=== PATIENT | male | born 1940 | race Caucasian/White ===

== ENCOUNTER 2020-06-22 17:23 | Observation (INO) ==
[2020-06-22 18:30] LABS: INR 1.6; Prothrombin Time 18.1 Seconds (9.4-12.1)
[2020-06-22 18:32] LABS: Activated Partial Thrombo Time 42.1 Seconds (26.0-36.0)
[2020-06-22 18:33] LABS: Basophils # 0.1 K/mcL (0.0-0.2); Basophils % 0.7 %; Eosinophils # 0.6 K/mcL (0.0-0.6); Eosinophils % 4.4 %; Hematocrit 28.4 % (37.5-50.1); Hemoglobin 8.9 g/dL (12.9-16.9); Lymphocytes # 2.1 K/mcL (0.6-4.6); Mean Corpuscular HGB Conc 31.3 g/dL (31.6-35.5); Mean Corpuscular Hemoglobin 28.9 pg (28.0-33.3); Mean Corpuscular Volume 92.2 fL (83.0-100.0); Mean Platelet Volume 9.9 fL (9.4-12.4); Monocytes # 1.2 K/mcL (0.0-1.3); Monocytes % 9.5 %; Neutrophils # 8.3 K/mcL (1.6-8.9); Platelet Count 508 K/mcL (140-400); Red Blood Count 3.08 M/mcL (4.19-5.50); Red Cell Distribution Width 15.8 % (11.5-14.5); Segmented Neutrophils % 67.4 %; White Blood Count 12.4 K/mcL (4.3-11.1)
[2020-06-22 18:47] LABS: Potassium 3.9 mEq/L (3.5-5.1)
[2020-06-22 19:02] LABS: Troponin I 0.05 ng/mL (< 0.04)
[2020-06-22] MEDS ORDERED: Naloxone 0.4 MG/ML INJ IVP PRN (21:50)
[2020-06-23 02:48] LABS: Basophils # 0.1 K/mcL (0.0-0.2); Basophils % 1.1 %; Eosinophils # 0.7 K/mcL (0.0-0.6); Eosinophils % 6.2 %; Hematocrit 26.3 % (37.5-50.1); Hemoglobin 8.4 g/dL (12.9-16.9); Immature Granulocytes % 1.1 % (0-4); Lymphocytes # 2.1 K/mcL (0.6-4.6); Lymphocytes % 18.7 %; Mean Corpuscular HGB Conc 31.9 g/dL (31.6-35.5); Mean Corpuscular Hemoglobin 29.4 pg (28.0-33.3); Mean Platelet Volume 9.7 fL (9.4-12.4); Monocytes % 9.4 %; Platelet Count 486 K/mcL (140-400); Red Blood Count 2.86 M/mcL (4.19-5.50); Red Cell Distribution Width 15.7 % (11.5-14.5); Segmented Neutrophils % 63.5 %; White Blood Count 11.1 K/mcL (4.3-11.1)
[2020-06-23 02:53] LABS: INR 1.5; Prothrombin Time 17.3 Seconds (9.4-12.1)
[2020-06-23 03:10] LABS: Albumin 2.7 g/dL (3.5-5.7); Albumin/Globulin Ratio 0.7 (1.1-2.2); Bilirubin,Total 0.4 mg/dL (0.3-1.0); Calcium 8.8 mg/dL (8.6-10.3); Magnesium 2.1 mg/dL (1.6-2.6); Phosphorous 3.7 mg/dL (2.7-4.5); Total Protein 6.7 g/dL (6.4-8.9)
[2020-06-23] MEDS ORDERED: *HR* OxyCODONE Immed Rel 5 MG TABLET PO PRN (07:54)
[2020-06-23] MEDS ORDERED: Fish Oil 1,000 Mg Softgel PO SCH (09:00)
[2020-06-23] MEDS ORDERED: Pyridoxine (B-6) 50 MG TABLET PO SCH (09:00)
[2020-06-23] MEDS ORDERED: Pregabalin 75 MG CAPSULE PO SCH (09:00)
[2020-06-23] MEDS ORDERED: Loratadine 10 MG TABLET PO SCH (09:00)
[2020-06-23] MEDS ORDERED: Aspirin Enteric Coated 81 MG Tablet PO SCH (09:00)
[2020-06-23] MEDS ORDERED: Multivit/Ca/Min/Fe/FA 1 TAB TABLET PO SCH (09:00)
[2020-06-23] MEDS ORDERED: Furosemide 40 MG TABLET PO SCH (09:00)
[2020-06-23] MEDS ORDERED: Vitamin E 200 UNIT (90MG) CAPSULE PO SCH (09:00)
[2020-06-23] MEDS ORDERED: Lidocaine 1% 20 ML MDV ONE (13:43)
[2020-06-23] MEDS ORDERED: Lidocaine -MPF 2% 2 ML VIAL ONE (14:22)
[2020-06-23] MEDS ORDERED: *HR* FentaNYL (PF) 100 MCG/2 ML VIAL ONE ×2 (14:22→14:35)
[2020-06-23] MEDS ORDERED: Ondansetron 4 MG/2 ML VIAL ONE (14:23)
[2020-06-23] MEDS ORDERED: Vancomycin 1,000 MG VIAL ONE (14:23)
[2020-06-23] MEDS ORDERED: Heparin 1,000 UNITS/500 mL 500 ML ONE (14:23)
[2020-06-23] MEDS ORDERED: *HR* FentaNYL (PF) 100 MCG/2 ML VIAL IVP PRN (14:25)
[2020-06-23] MEDS ORDERED: Lidocaine HCL 4 ML Topical Solution (Laryng-O-Jet Kit Sterile Pak) TP ONE (14:35)
[2020-06-23] MEDS ORDERED: *HR* PHENYLEPHRINE 1,000 MCG/10 ML SYRINGE IVP ONE (15:01)
[2020-06-23] MEDS ORDERED: Isovue-300 200 mL Infus..BTL ONE (15:11)
[2020-06-23] MEDS ORDERED: Dexamethasone 4 MG/ML VIAL ONE (15:32)
[2020-06-23] MEDS ORDERED: Naloxone 0.4 MG/ML INJ IVP PRN (16:19)
[2020-06-23 17:23] VITALS: BP 119/61
== END 2020-06-23 20:34 | disposition home or self-care (01) ==
LOC: EMEROOARM 17:23 → 2ANU 17:23 → SUATTDRO 19:39 → 2ANU 20:30
PROVIDERS: ADMIT Internal Medicine; ATTEND Internal Medicine

== ENCOUNTER 2020-06-25 10:42 | Inpatient (IN) ==
[2020-06-25 11:21] LABS: Basophils # 0.1 K/mcL (0.0-0.2); Basophils % 0.4 %; Eosinophils # 0.4 K/mcL (0.0-0.6); Eosinophils % 2.3 %; Hematocrit 29.4 % (37.5-50.1); Immature Granulocytes % 3.2 % (0-4); Lymphocytes # 1.7 K/mcL (0.6-4.6); Mean Corpuscular HGB Conc 30.6 g/dL (31.6-35.5); Mean Corpuscular Volume 91.3 fL (83.0-100.0); Mean Platelet Volume 9.8 fL (9.4-12.4); Monocytes # 0.9 K/mcL (0.0-1.3); Monocytes % 4.9 %; Platelet Count 575 K/mcL (140-400); Red Blood Count 3.22 M/mcL (4.19-5.50); Red Cell Distribution Width 16.4 % (11.5-14.5); Segmented Neutrophils % 80.2 %
[2020-06-25 11:24] LABS: Neutrophils # 15.2 K/mcL (1.6-8.9)
[2020-06-25 11:33] LABS: INR 1.3; Prothrombin Time 14.5 Seconds (9.4-12.1)
[2020-06-25 11:43] LABS: VBG Ionized Calcium 1.01 mmol/L (1.15-1.35)
[2020-06-25] MEDS ORDERED: Piperacillin/Tazobactam 3.375 GM in Water for inj. (sterile) 20 ML IVP ONE (11:51)
[2020-06-25 11:57] LABS: Albumin 3.2 g/dL (3.5-5.7); Albumin/Globulin Ratio 0.8 (1.1-2.2); Bilirubin,Total 0.4 mg/dL (0.3-1.0); Calcium 8.6 mg/dL (8.6-10.3); Globulin 4.2 g/dL (2.4-3.5); Magnesium 2.5 mg/dL (1.6-2.6); Phosphorous 3.5 mg/dL (2.7-4.5); Potassium 4.5 mEq/L (3.5-5.1); Thyroid Stimulating Hormone 2.704 mcIU/mL (0.340-5.600); Total Protein 7.4 g/dL (6.4-8.9); Troponin I 0.04 ng/mL (< 0.04)
[2020-06-25] MEDS ORDERED: Vancomycin 1,250 MG/262.5 ML IV.SOLN IVPB ONE (12:04)
[2020-06-25] MEDS ORDERED: Heparin 1,000 UNITS/500 mL 500 ML ONE (13:30)
[2020-06-25] MEDS ORDERED: *HR* Heparin 5,000 UNIT/ML VIAL ONE (13:58)
[2020-06-25] MEDS ORDERED: Naloxone 0.4 MG/ML INJ IVP PRN (14:19)
[2020-06-25] MEDS ORDERED: Dextrose Gel 15 GM/37.5 ML TUBE PO PRN ×2 (14:21)
[2020-06-25] MEDS ORDERED: *HR* Dextrose 50 % in Water (Vial) 50 ML VIAL IVP PRN (14:21)
[2020-06-25] MEDS ORDERED: D5% in Water 1,000 ML IVC PRN (14:21)
[2020-06-25] MEDS ORDERED: *HR* Heparin 5,000 UNIT/ML VIAL IVP PRN ×2 (14:34)
[2020-06-25] MEDS ORDERED: *HR* Heparin 5,000 UNIT/ML VIAL IVP ONE (14:34)
[2020-06-25] MEDS ORDERED: Heparin 25,000 UNIT/250 ML D5W 25,000 UNIT/250 ML IV.SOLN IVC SCH ×2 (14:45)
[2020-06-25] MEDS ORDERED: *HR* Heparin 10,000 UNIT/10 ML VIAL IV PRN (16:42)
[2020-06-25] MEDS ORDERED: 0.9 % Sodium Chloride 250 ML IVC PRN (16:42)
[2020-06-25] MEDS ORDERED: 0.9 % Sodium Chloride 1,000 ML PRIME SCH (16:45)
[2020-06-25 16:47] LABS: Hepatitis B Surface Antibody 143.38 mIU/mL
[2020-06-25 16:57] LABS: Hepatitis B Surface Antigen Nonreactive (Nonreactive)
[2020-06-25] MEDS ORDERED: Acetaminophen IV 1,000 MG/100 ML INFUS..BTL IVPB ONE (22:27)
[2020-06-25] MEDS: Piperacillin/Tazobactam 3.375 GM in 0.9 % Sodium Chloride Mini Bag 100 ML IVPB SCH (23:44)
[2020-06-26 04:00] LABS: Basophils # 0.1 K/mcL (0.0-0.2); Basophils % 0.7 %; Eosinophils # 0.2 K/mcL (0.0-0.6); Eosinophils % 1.5 %; Hematocrit 25.6 % (37.5-50.1); Hemoglobin 7.8 g/dL (12.9-16.9); Immature Granulocytes % 4.2 % (0-4); Lymphocytes # 1.9 K/mcL (0.6-4.6); Lymphocytes % 14.3 %; Mean Corpuscular HGB Conc 30.5 g/dL (31.6-35.5); Mean Corpuscular Hemoglobin 27.9 pg (28.0-33.3); Mean Corpuscular Volume 91.4 fL (83.0-100.0); Mean Platelet Volume 9.8 fL (9.4-12.4); Monocytes # 1.3 K/mcL (0.0-1.3); Monocytes % 9.3 %; Neutrophils # 9.5 K/mcL (1.6-8.9); Platelet Count 471 K/mcL (140-400); Red Cell Distribution Width 16.5 % (11.5-14.5); White Blood Count 13.5 K/mcL (4.3-11.1)
[2020-06-26 04:13] LABS: Calcium 8.1 mg/dL (8.6-10.3); Potassium 3.9 mEq/L (3.5-5.1)
[2020-06-26] MEDS ORDERED: Vancomycin 1,250 MG/262.5 ML IV.SOLN IVPB ONE (08:26)
[2020-06-26] MEDS ORDERED: Heparin 1,000 UNITS/500 mL 500 ML ONE (09:03)
[2020-06-26] MEDS ORDERED: 0.9 % Sodium Chloride 500 ML ONE (09:03)
[2020-06-26] MEDS: Famotidine 20 MG TABLET PO SCH (09:12)
[2020-06-26] MEDS: Vitamin E 200 UNIT (90MG) CAPSULE PO SCH (09:12)
[2020-06-26] MEDS: Furosemide 40 MG TABLET PO SCH (09:12)
[2020-06-26] MEDS: Metoprolol XL (24 HR) Succ 25 MG TAB.ER.24H PO SCH (09:12)
[2020-06-26] MEDS ORDERED: *HR* Heparin 5,000 UNIT/ML VIAL ONE (12:33)
[2020-06-26] MEDS: Piperacillin/Tazobactam 3.375 GM in 0.9 % Sodium Chloride Mini Bag 100 ML IVPB SCH ×2 (12:56→23:03)
[2020-06-26 16:34] LABS: VBG HCO3 26 mEq/L (21-27); VBG PCO2 36 mmHg (41-51); VBG PH 7.46 pH Units (7.32-7.42); VBG PO2 97 mmHg (25-50)
[2020-06-26] MEDS ORDERED: SODIUM CHLORIDE 0.9% IVPB ONE (17:33)
[2020-06-26] MEDS ORDERED: DESMOPRESSIN ACETATE IVPB ONE (17:33)
[2020-06-26] MEDS: Pyridoxine (B-6) 50 MG TABLET PO SCH (18:11)
[2020-06-26 18:17] LABS: Basophils # 0.1 K/mcL (0.0-0.2); Basophils % 0.6 %; Eosinophils # 0.1 K/mcL (0.0-0.6); Hematocrit 24.3 % (37.5-50.1); Hemoglobin 7.6 g/dL (12.9-16.9); Lymphocytes # 1.8 K/mcL (0.6-4.6); Lymphocytes % 16.8 %; Mean Corpuscular HGB Conc 31.3 g/dL (31.6-35.5); Mean Corpuscular Hemoglobin 28.6 pg (28.0-33.3); Mean Corpuscular Volume 91.4 fL (83.0-100.0); Mean Platelet Volume 9.8 fL (9.4-12.4); Monocytes # 1.3 K/mcL (0.0-1.3); Monocytes % 11.7 %; Neutrophils # 7.1 K/mcL (1.6-8.9); Platelet Count 429 K/mcL (140-400); Red Blood Count 2.66 M/mcL (4.19-5.50); Red Cell Distribution Width 16.9 % (11.5-14.5); Segmented Neutrophils % 65.9 %; White Blood Count 10.7 K/mcL (4.3-11.1)
[2020-06-26 18:21] LABS: INR 1.5; Prothrombin Time 17.1 Seconds (9.4-12.1)
[2020-06-26 18:24] LABS: Activated Partial Thrombo Time 36.1 Seconds (26.0-36.0)
[2020-06-26 20:00] LABS: Hemoglobin 7.6 g/dL (12.9-16.9)
[2020-06-26 23:55] LABS: Hematocrit 26.5 % (37.5-50.1); Hemoglobin 8.4 g/dL (12.9-16.9)
[2020-06-27] MEDS: Acetaminophen 325 MG TABLET PO PRN (01:01)
[2020-06-27 04:38] LABS: Basophils # 0.1 K/mcL (0.0-0.2); Basophils % 0.7 %; Eosinophils # 0.2 K/mcL (0.0-0.6); Hematocrit 26.4 % (37.5-50.1); Hemoglobin 8.3 g/dL (12.9-16.9); Immature Granulocytes % 3.9 % (0-4); Lymphocytes # 1.6 K/mcL (0.6-4.6); Lymphocytes % 16.4 %; Mean Corpuscular HGB Conc 31.4 g/dL (31.6-35.5); Mean Corpuscular Hemoglobin 28.5 pg (28.0-33.3); Mean Corpuscular Volume 90.7 fL (83.0-100.0); Monocytes # 1.3 K/mcL (0.0-1.3); Neutrophils # 6.2 K/mcL (1.6-8.9); Platelet Count 377 K/mcL (140-400); Red Blood Count 2.91 M/mcL (4.19-5.50); Red Cell Distribution Width 15.5 % (11.5-14.5); White Blood Count 9.6 K/mcL (4.3-11.1)
[2020-06-27 04:54] LABS: Potassium 3.9 mEq/L (3.5-5.1)
[2020-06-27] MEDS ORDERED: *HR* Heparin 10,000 UNIT/10 ML VIAL IV PRN (07:31)
[2020-06-27] MEDS ORDERED: 0.9 % Sodium Chloride 250 ML IVC PRN (07:31)
[2020-06-27] MEDS ORDERED: 0.9 % Sodium Chloride 1,000 ML PRIME SCH (07:45)
[2020-06-27] MEDS: Metoprolol XL (24 HR) Succ 25 MG TAB.ER.24H PO SCH (08:44)
[2020-06-27] MEDS: Famotidine 20 MG TABLET PO SCH (08:46)
[2020-06-27] MEDS: Vitamin E 200 UNIT (90MG) CAPSULE PO SCH (08:46)
[2020-06-27] MEDS ORDERED: Isovue-370 500 ML BOTTLE IVP ONE (12:01)
[2020-06-27] MEDS: Furosemide 40 MG TABLET PO SCH (13:32)
[2020-06-27] MEDS: Piperacillin/Tazobactam 3.375 GM in 0.9 % Sodium Chloride Mini Bag 100 ML IVPB SCH (13:32)
[2020-06-27 13:49] LABS: Adenovirus Not Detected (Not Detect); Bordetella Pertussis Not Detected (Not Detect); Chlamydophila pneumoniae Not Detected (Not Detect); Coronavirus 229E Not Detected (Not Detect); Coronavirus HKU1 Not Detected (Not Detect); Coronavirus NL63 Not Detected (Not Detect); Coronavirus OC43 Not Detected (Not Detect); Human Metapneumovirus Not Detected (Not Detect); Human Rhinovirus/Enterovirus Not Detected (Not Detect); Influenza A Subtype 2009 H1 Not Detected (Not Detect); Influenza B Not Detected (Not Detect); Mycoplasma pneumoniae Not Detected (Not Detect); Parainfluenza Virus 1 Not Detected (Not Detect); Parainfluenza Virus 2 Not Detected (Not Detect); Parainfluenza Virus 3 Not Detected (Not Detect); Parainfluenza Virus 4 Not Detected (Not Detect); Respiratory Syncytial Virus Not Detected (Not Detect)
[2020-06-27] MEDS: Pyridoxine (B-6) 50 MG TABLET PO SCH (17:03)
[2020-06-28] MEDS: Piperacillin/Tazobactam 3.375 GM in 0.9 % Sodium Chloride Mini Bag 100 ML IVPB SCH ×3 (01:36→23:28)
[2020-06-28 02:51] LABS: Basophils # 0.1 K/mcL (0.0-0.2); Basophils % 0.5 %; Eosinophils # 0.3 K/mcL (0.0-0.6); Eosinophils % 2.3 %; Hematocrit 28.5 % (37.5-50.1); Hemoglobin 9.2 g/dL (12.9-16.9); Immature Granulocytes % 2.8 % (0-4); Lymphocytes # 1.9 K/mcL (0.6-4.6); Lymphocytes % 16.7 %; Mean Corpuscular HGB Conc 32.3 g/dL (31.6-35.5); Mean Corpuscular Hemoglobin 29.1 pg (28.0-33.3); Mean Corpuscular Volume 90.2 fL (83.0-100.0); Mean Platelet Volume 9.9 fL (9.4-12.4); Monocytes # 1.5 K/mcL (0.0-1.3); Monocytes % 12.5 %; Neutrophils # 7.6 K/mcL (1.6-8.9); Platelet Count 378 K/mcL (140-400); Red Blood Count 3.16 M/mcL (4.19-5.50); Red Cell Distribution Width 15.8 % (11.5-14.5); Segmented Neutrophils % 65.2 %; White Blood Count 11.6 K/mcL (4.3-11.1)
[2020-06-28 03:06] LABS: BUN/Creatinine Ratio 7 (6-26); Blood Urea Nitrogen 31 mg/dL (8-23); Calcium 8.5 mg/dL (8.6-10.3); Carbon Dioxide 24 mEq/L (23-29); Chloride 96 mEq/L (98-107); Glucose 86 mg/dL (70-105); Osmolality,Calculated 284 (280-300); Potassium 3.5 mEq/L (3.5-5.1); Sodium 134 mEq/L (136-145); eGFR For African Americans 16 (> 60); eGFR For Non-African Americans 14 (> 60)
[2020-06-28 03:07] LABS: Amylase 21 Units/L (29-103); Lipase 31 Units/L (11-82)
[2020-06-28] MEDS: Famotidine 20 MG TABLET PO SCH (07:51)
[2020-06-28] MEDS: Vitamin E 200 UNIT (90MG) CAPSULE PO SCH (07:51)
[2020-06-28] MEDS: Metoprolol XL (24 HR) Succ 25 MG TAB.ER.24H PO SCH (09:58)
[2020-06-28] MEDS: *HR* OxyCODONE Immed Rel 5 MG TABLET PO PRN (09:58)
[2020-06-28] MEDS: Furosemide 40 MG TABLET PO SCH (09:58)
[2020-06-28 11:51] LABS: C-Reactive Protein > 300 mg/L (Less than 10)
[2020-06-28 13:53] LABS: INR 1.3; Prothrombin Time 14.9 Seconds (9.4-12.1)
[2020-06-28] MEDS: Artificial Tears SOLN 15 ML BOTTLE BOTH EYES SCH ×2 (17:37→19:28)
[2020-06-28] MEDS: Pyridoxine (B-6) 50 MG TABLET PO SCH (17:38)
[2020-06-28] MEDS: Ondansetron 4 MG/2 ML VIAL IVP PRN (19:28)
[2020-06-29] MEDS: *HR* OxyCODONE Immed Rel 5 MG TABLET PO PRN ×3 (01:47→18:29)
[2020-06-29 06:00] LABS: Hematocrit 25.9 % (37.5-50.1); Hemoglobin 8.2 g/dL (12.9-16.9); Mean Corpuscular HGB Conc 31.7 g/dL (31.6-35.5); Mean Corpuscular Hemoglobin 29.3 pg (28.0-33.3); Mean Corpuscular Volume 92.5 fL (83.0-100.0); Mean Platelet Volume 9.9 fL (9.4-12.4); Platelet Count 351 K/mcL (140-400); Red Cell Distribution Width 15.9 % (11.5-14.5); White Blood Count 11.5 K/mcL (4.3-11.1)
[2020-06-29 06:19] LABS: Calcium 7.9 mg/dL (8.6-10.3); Potassium 3.9 mEq/L (3.5-5.1)
[2020-06-29] MEDS ORDERED: *HR* Heparin 10,000 UNIT/10 ML VIAL IV PRN (07:42)
[2020-06-29] MEDS ORDERED: 0.9 % Sodium Chloride 250 ML IVC PRN (07:42)
[2020-06-29] MEDS ORDERED: 0.9 % Sodium Chloride 1,000 ML PRIME SCH (07:45)
[2020-06-29] MEDS: Artificial Tears SOLN 15 ML BOTTLE BOTH EYES SCH ×4 (10:59→21:05)
[2020-06-29 11:59] LABS: Color,Synovial Fluid Red (Straw)
[2020-06-29 12:00] LABS: Appearance,Synovial Fluid Cloudy (Clear-Hazy)
[2020-06-29 12:12] LABS: Glucose,Synovial Fluid < 10 mg/dL (No Ref Range); LDH,Synovial Fluid > 1200 Units/L (No Ref Range)
[2020-06-29] MEDS: Metoprolol XL (24 HR) Succ 25 MG TAB.ER.24H PO SCH (12:29)
[2020-06-29] MEDS: Vitamin E 200 UNIT (90MG) CAPSULE PO SCH (12:29)
[2020-06-29] MEDS: Famotidine 20 MG TABLET PO SCH (12:29)
[2020-06-29] MEDS: Piperacillin/Tazobactam 3.375 GM in 0.9 % Sodium Chloride Mini Bag 100 ML IVPB SCH (12:30)
[2020-06-29] MEDS: Acetaminophen 325 MG TABLET PO PRN (13:48)
[2020-06-29] MEDS: Furosemide 40 MG TABLET PO SCH (13:48)
[2020-06-29] MEDS ORDERED: Vancomycin 500 MG in 0.9 % Sodium Chloride Mini Bag 100 ML IVPB ONE (16:00)
[2020-06-29] MEDS: Pyridoxine (B-6) 50 MG TABLET PO SCH (17:48)
[2020-06-29] MEDS: Ondansetron 4 MG/2 ML VIAL IVP PRN (21:08)
[2020-06-30] MEDS: *HR* OxyCODONE Immed Rel 5 MG TABLET PO PRN ×2 (00:31→21:32)
[2020-06-30] MEDS: Piperacillin/Tazobactam 3.375 GM in 0.9 % Sodium Chloride Mini Bag 100 ML IVPB SCH ×3 (00:32→23:41)
[2020-06-30] MEDS: Acetaminophen 325 MG TABLET PO PRN ×2 (01:41→21:31)
[2020-06-30 05:53] LABS: Basophils # 0.2 K/mcL (0.0-0.2); Basophils % 1.1 %; Eosinophils % 6.1 %; Hematocrit 30.3 % (37.5-50.1); Hemoglobin 9.5 g/dL (12.9-16.9); Immature Granulocytes % 4.6 % (0-4); Lymphocytes # 2.4 K/mcL (0.6-4.6); Lymphocytes % 14.6 %; Mean Corpuscular HGB Conc 31.4 g/dL (31.6-35.5); Mean Corpuscular Hemoglobin 29.2 pg (28.0-33.3); Mean Corpuscular Volume 93.2 fL (83.0-100.0); Mean Platelet Volume 9.9 fL (9.4-12.4); Monocytes # 1.5 K/mcL (0.0-1.3); Neutrophils # 10.7 K/mcL (1.6-8.9); Platelet Count 419 K/mcL (140-400); Red Blood Count 3.25 M/mcL (4.19-5.50); Red Cell Distribution Width 15.9 % (11.5-14.5); Segmented Neutrophils % 64.6 %; White Blood Count 16.6 K/mcL (4.3-11.1)
[2020-06-30 06:10] LABS: Calcium 8.2 mg/dL (8.6-10.3); Potassium 3.6 mEq/L (3.5-5.1)
[2020-06-30] MEDS: Artificial Tears SOLN 15 ML BOTTLE BOTH EYES SCH ×4 (08:49→20:14)
[2020-06-30] MEDS: Vitamin E 200 UNIT (90MG) CAPSULE PO SCH (08:49)
[2020-06-30] MEDS: Furosemide 40 MG TABLET PO SCH ×2 (08:49→10:06)
[2020-06-30] MEDS: Famotidine 20 MG TABLET PO SCH (08:49)
[2020-06-30] MEDS: Metoprolol XL (24 HR) Succ 25 MG TAB.ER.24H PO SCH ×2 (08:49→10:06)
[2020-06-30] MEDS: Ondansetron 4 MG/2 ML VIAL IVP PRN (15:46)
[2020-06-30] MEDS: Pyridoxine (B-6) 50 MG TABLET PO SCH (18:09)
[2020-07-01 05:22] LABS: Basophils # 0.2 K/mcL (0.0-0.2); Basophils % 1.3 %; Eosinophils # 1.2 K/mcL (0.0-0.6); Eosinophils % 7.8 %; Hematocrit 30.1 % (37.5-50.1); Hemoglobin 9.4 g/dL (12.9-16.9); Immature Granulocytes % 5.6 % (0-4); Lymphocytes # 2.4 K/mcL (0.6-4.6); Lymphocytes % 15.5 %; Mean Corpuscular HGB Conc 31.2 g/dL (31.6-35.5); Mean Corpuscular Hemoglobin 29.6 pg (28.0-33.3); Mean Corpuscular Volume 94.7 fL (83.0-100.0); Mean Platelet Volume 9.6 fL (9.4-12.4); Monocytes # 1.3 K/mcL (0.0-1.3); Monocytes % 8.4 %; Neutrophils # 9.6 K/mcL (1.6-8.9); Platelet Count 382 K/mcL (140-400); Red Blood Count 3.18 M/mcL (4.19-5.50); Segmented Neutrophils % 61.4 %; White Blood Count 15.6 K/mcL (4.3-11.1)
[2020-07-01 05:41] LABS: Calcium 8.1 mg/dL (8.6-10.3); Potassium 4.3 mEq/L (3.5-5.1)
[2020-07-01 05:55] LABS: Platelet Estimate Normal (Normal)
[2020-07-01] MEDS: Famotidine 20 MG TABLET PO SCH (08:13)
[2020-07-01] MEDS: Furosemide 40 MG TABLET PO SCH (08:13)
[2020-07-01] MEDS: Vitamin E 200 UNIT (90MG) CAPSULE PO SCH (08:13)
[2020-07-01] MEDS: Acetaminophen 325 MG TABLET PO PRN (08:13)
[2020-07-01] MEDS: Metoprolol XL (24 HR) Succ 25 MG TAB.ER.24H PO SCH (08:13)
[2020-07-01] MEDS: Artificial Tears SOLN 15 ML BOTTLE BOTH EYES SCH ×4 (08:17→20:13)
[2020-07-01] MEDS ORDERED: *HR* Heparin 5,000 UNIT/ML VIAL IVP PRN ×2 (12:11)
[2020-07-01] MEDS: Piperacillin/Tazobactam 3.375 GM in 0.9 % Sodium Chloride Mini Bag 100 ML IVPB SCH ×2 (12:31→23:58)
[2020-07-01] MEDS: *HR* OxyCODONE Immed Rel 5 MG TABLET PO PRN ×2 (12:45→19:47)
[2020-07-01 13:09] LABS: Heparin anti-factor XA UFH < 0.04 IU/mL (0.30-0.70)
[2020-07-01 13:10] LABS: INR 1.2
[2020-07-01] MEDS: Heparin 25,000 UNIT/250 ML D5W 25,000 UNIT/250 ML IV.SOLN IVC SCH (14:22)
[2020-07-01] MEDS: Pyridoxine (B-6) 50 MG TABLET PO SCH (16:43)
[2020-07-01] MEDS ORDERED: *HR* Labetalol 20 MG/4 ML SYRINGE IVP ONE (23:26)
[2020-07-02] MEDS: *HR* OxyCODONE Immed Rel 5 MG TABLET PO PRN ×3 (03:23→18:22)
[2020-07-02 04:43] LABS: Hematocrit 29.5 % (37.5-50.1); Hemoglobin 9.1 g/dL (12.9-16.9); Mean Corpuscular HGB Conc 30.8 g/dL (31.6-35.5); Mean Corpuscular Hemoglobin 28.9 pg (28.0-33.3); Mean Corpuscular Volume 93.7 fL (83.0-100.0); Mean Platelet Volume 9.4 fL (9.4-12.4); Platelet Count 437 K/mcL (140-400); Red Blood Count 3.15 M/mcL (4.19-5.50); Red Cell Distribution Width 16.4 % (11.5-14.5); White Blood Count 16.8 K/mcL (4.3-11.1)
[2020-07-02 05:00] LABS: Calcium 8.4 mg/dL (8.6-10.3); Potassium 4.3 mEq/L (3.5-5.1)
[2020-07-02] MEDS ORDERED: 0.9 % Sodium Chloride 250 ML IVC PRN (07:00)
[2020-07-02] MEDS: Furosemide 40 MG TABLET PO SCH (08:30)
[2020-07-02] MEDS: Vitamin E 200 UNIT (90MG) CAPSULE PO SCH (08:30)
[2020-07-02] MEDS: Famotidine 20 MG TABLET PO SCH (08:30)
[2020-07-02] MEDS: Artificial Tears SOLN 15 ML BOTTLE BOTH EYES SCH ×4 (08:31→19:49)
[2020-07-02] MEDS ORDERED: *HR* Heparin 10,000 UNIT/10 ML VIAL IV PRN (10:35)
[2020-07-02] MEDS ORDERED: Albumin 25% 25gram/100mL 25 GM/100 ML IV.SOLN ONE (11:41)
[2020-07-02] MEDS ORDERED: Albumin 25% 25gram/100mL 25 GM/100 ML IV.SOLN IVPB ONE (11:43)
[2020-07-02] MEDS: Piperacillin/Tazobactam 3.375 GM in 0.9 % Sodium Chloride Mini Bag 100 ML IVPB SCH (12:46)
[2020-07-02] MEDS: Heparin 25,000 UNIT/250 ML D5W 25,000 UNIT/250 ML IV.SOLN IVC SCH (12:46)
[2020-07-02] MEDS: Metoprolol XL (24 HR) Succ 25 MG TAB.ER.24H PO SCH (12:51)
[2020-07-02] MEDS ORDERED: *HR* Metoprolol 5 MG/5 ML VIAL IVP ONE (12:53)
[2020-07-02] MEDS ORDERED: Vancomycin 500 MG in 0.9 % Sodium Chloride Mini Bag 100 ML IVPB ONE (16:00)
[2020-07-02] MEDS: Pyridoxine (B-6) 50 MG TABLET PO SCH (16:51)
[2020-07-03] MEDS: Piperacillin/Tazobactam 3.375 GM in 0.9 % Sodium Chloride Mini Bag 100 ML IVPB SCH ×2 (01:29→11:38)
[2020-07-03] MEDS: *HR* OxyCODONE Immed Rel 5 MG TABLET PO PRN ×3 (01:36→22:35)
[2020-07-03 04:56] LABS: Hematocrit 30.1 % (37.5-50.1); Hemoglobin 9.3 g/dL (12.9-16.9); Mean Corpuscular HGB Conc 30.9 g/dL (31.6-35.5); Mean Corpuscular Hemoglobin 28.9 pg (28.0-33.3); Mean Corpuscular Volume 93.5 fL (83.0-100.0); Mean Platelet Volume 9.4 fL (9.4-12.4); Platelet Count 422 K/mcL (140-400); Red Blood Count 3.22 M/mcL (4.19-5.50); Red Cell Distribution Width 16.6 % (11.5-14.5); White Blood Count 17.4 K/mcL (4.3-11.1)
[2020-07-03 05:02] LABS: Calcium 8.9 mg/dL (8.6-10.3)
[2020-07-03] MEDS ORDERED: *HR* HYDROmorphone 2 MG TABLET PO ONE (05:42)
[2020-07-03] MEDS: Vitamin E 200 UNIT (90MG) CAPSULE PO SCH (09:11)
[2020-07-03] MEDS: Artificial Tears SOLN 15 ML BOTTLE BOTH EYES SCH ×4 (09:12→22:36)
[2020-07-03] MEDS: Furosemide 40 MG TABLET PO SCH (09:12)
[2020-07-03] MEDS: Metoprolol XL (24 HR) Succ 25 MG TAB.ER.24H PO SCH (09:12)
[2020-07-03] MEDS: Famotidine 20 MG TABLET PO SCH (09:12)
[2020-07-03] MEDS: Heparin 25,000 UNIT/250 ML D5W 25,000 UNIT/250 ML IV.SOLN IVC SCH ×2 (11:38→14:59)
[2020-07-03 16:04] LABS: Basophils # 0.2 K/mcL (0.0-0.2); Basophils % 1.2 %; Eosinophils # 0.8 K/mcL (0.0-0.6); Eosinophils % 5.7 %; Hemoglobin 9.7 g/dL (12.9-16.9); Immature Granulocytes % 3.4 % (0-4); Lymphocytes # 2.5 K/mcL (0.6-4.6); Lymphocytes % 17.5 %; Mean Corpuscular HGB Conc 30.3 g/dL (31.6-35.5); Mean Corpuscular Hemoglobin 28.7 pg (28.0-33.3); Mean Corpuscular Volume 94.7 fL (83.0-100.0); Mean Platelet Volume 9.2 fL (9.4-12.4); Monocytes # 1.4 K/mcL (0.0-1.3); Monocytes % 9.5 %; Neutrophils # 8.9 K/mcL (1.6-8.9); Platelet Count 417 K/mcL (140-400); Red Blood Count 3.38 M/mcL (4.19-5.50); Red Cell Distribution Width 16.7 % (11.5-14.5); Segmented Neutrophils % 62.7 %; White Blood Count 14.3 K/mcL (4.3-11.1)
[2020-07-03] MEDS: Pyridoxine (B-6) 50 MG TABLET PO SCH (18:17)
[2020-07-04] MEDS: Piperacillin/Tazobactam 3.375 GM in 0.9 % Sodium Chloride Mini Bag 100 ML IVPB SCH ×2 (00:28→11:57)
[2020-07-04 01:42] LABS: Hematocrit 30.1 % (37.5-50.1); Hemoglobin 9.4 g/dL (12.9-16.9); Mean Corpuscular HGB Conc 31.2 g/dL (31.6-35.5); Mean Corpuscular Hemoglobin 29.7 pg (28.0-33.3); Mean Platelet Volume 9.3 fL (9.4-12.4); Platelet Count 396 K/mcL (140-400); Red Blood Count 3.17 M/mcL (4.19-5.50); Red Cell Distribution Width 16.6 % (11.5-14.5); White Blood Count 13.8 K/mcL (4.3-11.1)
[2020-07-04] MEDS: Acetaminophen 325 MG TABLET PO PRN (03:49)
[2020-07-04] MEDS ORDERED: 0.9 % Sodium Chloride 250 ML IVC PRN (07:07)
[2020-07-04] MEDS ORDERED: *HR* Heparin 10,000 UNIT/10 ML VIAL IV PRN (11:39)
[2020-07-04] MEDS: Vitamin E 200 UNIT (90MG) CAPSULE PO SCH (11:53)
[2020-07-04] MEDS: *HR* OxyCODONE Immed Rel 5 MG TABLET PO PRN (11:53)
[2020-07-04] MEDS: Metoprolol XL (24 HR) Succ 25 MG TAB.ER.24H PO SCH (11:53)
[2020-07-04] MEDS: Famotidine 20 MG TABLET PO SCH (11:54)
[2020-07-04] MEDS: Artificial Tears SOLN 15 ML BOTTLE BOTH EYES SCH ×4 (11:56→20:15)
[2020-07-04] MEDS: Heparin 25,000 UNIT/250 ML D5W 25,000 UNIT/250 ML IV.SOLN IVC SCH (11:57)
[2020-07-04] MEDS: Furosemide 40 MG TABLET PO SCH (12:56)
[2020-07-04] MEDS ORDERED: *HR* Metoprolol 5 MG/5 ML VIAL IVP ONE (14:09)
[2020-07-04] MEDS ORDERED: Perflutren Lipid Microsphere 1.3 ML in 0.9 % Sodium Chloride 8.7 ML IVP PRN (15:29)
[2020-07-04] MEDS ORDERED: Vancomycin 500 MG in 0.9 % Sodium Chloride Mini Bag 100 ML IVPB ONE (16:00)
[2020-07-04] MEDS: Pyridoxine (B-6) 50 MG TABLET PO SCH (17:37)
[2020-07-04] MEDS ORDERED: Heparin 25,000UNIT/250ML 1/2NS 25,000 UNIT/250 ML IV.SOLN IVC SCH (22:45)
[2020-07-05] MEDS: Piperacillin/Tazobactam 3.375 GM in 0.9 % Sodium Chloride Mini Bag 100 ML IVPB SCH ×2 (00:14→11:18)
[2020-07-05 01:34] LABS: Basophils # 0.1 K/mcL (0.0-0.2); Eosinophils # 0.7 K/mcL (0.0-0.6); Eosinophils % 5.1 %; Hematocrit 31.8 % (37.5-50.1); Hemoglobin 9.8 g/dL (12.9-16.9); Immature Granulocytes % 2.9 % (0-4); Lymphocytes # 2.4 K/mcL (0.6-4.6); Lymphocytes % 16.7 %; Mean Corpuscular HGB Conc 30.8 g/dL (31.6-35.5); Mean Corpuscular Hemoglobin 28.9 pg (28.0-33.3); Mean Corpuscular Volume 93.8 fL (83.0-100.0); Mean Platelet Volume 9.5 fL (9.4-12.4); Monocytes # 1.6 K/mcL (0.0-1.3); Monocytes % 10.9 %; Neutrophils # 9.3 K/mcL (1.6-8.9); Nucleated Red Blood Cells 0.2 /100 WBC (0); Platelet Count 393 K/mcL (140-400); Red Blood Count 3.39 M/mcL (4.19-5.50); Red Cell Distribution Width 17.1 % (11.5-14.5); Segmented Neutrophils % 63.4 %; White Blood Count 14.6 K/mcL (4.3-11.1)
[2020-07-05 02:01] LABS: Potassium 4.1 mEq/L (3.5-5.1)
[2020-07-05 02:03] LABS: Troponin I 0.06 ng/mL (< 0.04)
[2020-07-05] MEDS ORDERED: Heparin 25,000UNIT/250ML 1/2NS 25,000 UNIT/250 ML IV.SOLN IVC SCH ×2 (03:30→04:30)
[2020-07-05] MEDS: Famotidine 20 MG TABLET PO SCH (10:12)
[2020-07-05] MEDS: Vitamin E 200 UNIT (90MG) CAPSULE PO SCH (10:13)
[2020-07-05] MEDS: Metoprolol XL (24 HR) Succ 25 MG TAB.ER.24H PO SCH (10:14)
[2020-07-05] MEDS: Artificial Tears SOLN 15 ML BOTTLE BOTH EYES SCH ×4 (10:15→21:01)
[2020-07-05] MEDS: *HR* OxyCODONE Immed Rel 5 MG TABLET PO PRN (14:02)
[2020-07-05] MEDS: Heparin 25,000UNIT/250ML 1/2NS 25,000 UNIT/250 ML IV.SOLN IVC SCH (14:16)
[2020-07-05] MEDS: Pyridoxine (B-6) 50 MG TABLET PO SCH (16:44)
[2020-07-05] MEDS: metroNIDAZOLE 500 MG TABLET PO SCH (21:03)
[2020-07-05] MEDS ORDERED: Cefepime HCl 2,000 MG in Water for inj. (sterile) 20 ML IVP ONE (22:00)
[2020-07-06] MEDS: Heparin 25,000UNIT/250ML 1/2NS 25,000 UNIT/250 ML IV.SOLN IVC SCH ×2 (00:07→23:53)
[2020-07-06 01:37] LABS: Hematocrit 31.1 % (37.5-50.1); Hemoglobin 9.4 g/dL (12.9-16.9); Mean Corpuscular HGB Conc 30.2 g/dL (31.6-35.5); Mean Corpuscular Hemoglobin 28.9 pg (28.0-33.3); Mean Corpuscular Volume 95.7 fL (83.0-100.0); Mean Platelet Volume 9.3 fL (9.4-12.4); Platelet Count 359 K/mcL (140-400); Red Blood Count 3.25 M/mcL (4.19-5.50); Red Cell Distribution Width 17.4 % (11.5-14.5); White Blood Count 12.1 K/mcL (4.3-11.1)
[2020-07-06 02:00] LABS: Potassium 4.2 mEq/L (3.5-5.1)
[2020-07-06] MEDS ORDERED: 0.9 % Sodium Chloride 250 ML IVC PRN (06:56)
[2020-07-06] MEDS: Artificial Tears SOLN 15 ML BOTTLE BOTH EYES SCH ×4 (09:18→21:07)
[2020-07-06] MEDS: metroNIDAZOLE 500 MG TABLET PO SCH ×4 (09:18→21:07)
[2020-07-06] MEDS: Metoprolol XL (24 HR) Succ 25 MG TAB.ER.24H PO SCH (09:19)
[2020-07-06] MEDS: Famotidine 20 MG TABLET PO SCH (09:19)
[2020-07-06] MEDS: Vitamin E 200 UNIT (90MG) CAPSULE PO SCH (09:19)
[2020-07-06] MEDS ORDERED: *HR* Heparin 10,000 UNIT/10 ML VIAL IV PRN (10:57)
[2020-07-06] MEDS ORDERED: polyethylene glycoL 3350 17 GM POWD.PACK PO PRN (11:58)
[2020-07-06] MEDS ORDERED: Cefepime HCl 2,000 MG in Water for inj. (sterile) 20 ML IVP SCH (14:00)
[2020-07-06] MEDS ORDERED: Vancomycin 500 MG in 0.9 % Sodium Chloride Mini Bag 100 ML IVPB ONE (16:00)
[2020-07-06] MEDS: Ondansetron 4 MG/2 ML VIAL IVP PRN (17:11)
[2020-07-06] MEDS: Pyridoxine (B-6) 50 MG TABLET PO SCH (17:40)
[2020-07-06] MEDS ORDERED: Warfarin perPT PO PRN (18:00)
[2020-07-06] MEDS ORDERED: *HR* Warfarin 2.5 MG TABLET PO ONE (18:00)
[2020-07-06] MEDS: *HR* OxyCODONE Immed Rel 5 MG TABLET PO PRN (21:07)
[2020-07-07 03:38] LABS: Hematocrit 31.9 % (37.5-50.1); Hemoglobin 9.6 g/dL (12.9-16.9); Mean Corpuscular HGB Conc 30.1 g/dL (31.6-35.5); Mean Corpuscular Hemoglobin 29.2 pg (28.0-33.3); Mean Platelet Volume 9.2 fL (9.4-12.4); Platelet Count 348 K/mcL (140-400); Red Blood Count 3.29 M/mcL (4.19-5.50); Red Cell Distribution Width 17.5 % (11.5-14.5); White Blood Count 17.9 K/mcL (4.3-11.1)
[2020-07-07 03:43] LABS: INR 1.3; Prothrombin Time 14.9 Seconds (9.4-12.1)
[2020-07-07 03:57] LABS: Calcium 9.5 mg/dL (8.6-10.3); Potassium 4.4 mEq/L (3.5-5.1)
[2020-07-07] MEDS: metroNIDAZOLE 500 MG TABLET PO SCH ×4 (09:02→20:58)
[2020-07-07] MEDS: Metoprolol XL (24 HR) Succ 25 MG TAB.ER.24H PO SCH (09:02)
[2020-07-07] MEDS: Famotidine 20 MG TABLET PO SCH ×2 (09:03→09:09)
[2020-07-07] MEDS: Vitamin E 200 UNIT (90MG) CAPSULE PO SCH ×2 (09:03→09:09)
[2020-07-07] MEDS: Artificial Tears SOLN 15 ML BOTTLE BOTH EYES SCH ×4 (09:04→20:58)
[2020-07-07] MEDS ORDERED: *HR* Heparin 10,000 UNIT/10 ML VIAL IV PRN (17:09)
[2020-07-07] MEDS ORDERED: *HR* Warfarin 2.5 MG TABLET PO ONE (18:00)
[2020-07-07] MEDS: Pyridoxine (B-6) 50 MG TABLET PO SCH (18:07)
[2020-07-07] MEDS: Heparin 25,000UNIT/250ML 1/2NS 25,000 UNIT/250 ML IV.SOLN IVC SCH (22:55)
[2020-07-08] MEDS ORDERED: Acetaminophen IV 1,000 MG/100 ML INFUS..BTL IVPB ONE (01:12)
[2020-07-08 02:21] LABS: VBG HCO3 24 mEq/L (21-27); VBG PCO2 42 mmHg (41-51); VBG PH 7.37 pH Units (7.32-7.42); VBG PO2 175 mmHg (25-50)
[2020-07-08 05:29] LABS: Hematocrit 24.7 % (37.5-50.1); Hemoglobin 7.2 g/dL (12.9-16.9); Mean Corpuscular HGB Conc 29.1 g/dL (31.6-35.5); Mean Corpuscular Hemoglobin 29.3 pg (28.0-33.3); Mean Corpuscular Volume 100.4 fL (83.0-100.0); Mean Platelet Volume 10.1 fL (9.4-12.4); Platelet Count 328 K/mcL (140-400); Red Blood Count 2.46 M/mcL (4.19-5.50); Red Cell Distribution Width 18.7 % (11.5-14.5)
[2020-07-08 05:31] LABS: White Blood Count 34.7 K/mcL (4.3-11.1)
[2020-07-08 05:34] LABS: INR 1.7
[2020-07-08 05:47] LABS: Calcium 9.2 mg/dL (8.6-10.3)
[2020-07-08] MEDS ORDERED: *HR* Dextrose 50 % in Water (Vial) 50 ML VIAL IVP PRN (06:07)
[2020-07-08] MEDS ORDERED: 0.9 % Sodium Chloride 500 ML IVC ONE (06:17)
[2020-07-08] MEDS ORDERED: Warfarin perPT PO PRN (08:25)
[2020-07-08] MEDS ORDERED: Perflutren Lipid Microsphere 1.3 ML in 0.9 % Sodium Chloride 8.7 ML IVP PRN (08:25)
[2020-07-08] MEDS ORDERED: Dextrose Gel 15 GM/37.5 ML TUBE PO PRN ×2 (08:25)
[2020-07-08] MEDS ORDERED: Acetaminophen 325 MG TABLET PO PRN (08:25)
[2020-07-08] MEDS ORDERED: 0.9 % Sodium Chloride 250 ML IVC PRN (08:25)
[2020-07-08] MEDS ORDERED: Ondansetron 4 MG/2 ML VIAL IVP PRN (08:25)
[2020-07-08] MEDS ORDERED: Naloxone 0.4 MG/ML INJ IVP PRN (08:25)
[2020-07-08] MEDS ORDERED: polyethylene glycoL 3350 17 GM POWD.PACK PO PRN (08:25)
[2020-07-08] MEDS ORDERED: metroNIDAZOLE 500 MG TABLET PO SCH (09:00)
[2020-07-08] MEDS: Famotidine 20 MG TABLET PO SCH (09:39)
[2020-07-08] MEDS: Vitamin E 200 UNIT (90MG) CAPSULE PO SCH (09:40)
[2020-07-08] MEDS ORDERED: 0.9 % Sodium Chloride 1,000 ML IVC ONE (09:57)
[2020-07-08] MEDS: Artificial Tears SOLN 15 ML BOTTLE BOTH EYES SCH ×4 (10:17→20:24)
[2020-07-08 11:20] LABS: Eosinophils % 0.3 %
[2020-07-08] MEDS: Norepinephrine 4 MG/254 ML IV.SOLN IVC SCH (11:20)
[2020-07-08 11:22] LABS: Basophils # 0.1 K/mcL (0.0-0.2); Basophils % 0.3 %; Eosinophils # 0.1 K/mcL (0.0-0.6); Hematocrit 22.5 % (37.5-50.1); Hemoglobin 6.2 g/dL (12.9-16.9); Immature Granulocytes % 4.2 % (0-4); Lymphocytes # 3.3 K/mcL (0.6-4.6); Mean Corpuscular HGB Conc 27.6 g/dL (31.6-35.5); Mean Corpuscular Hemoglobin 29.5 pg (28.0-33.3); Mean Corpuscular Volume 107.1 fL (83.0-100.0); Mean Platelet Volume 10.4 fL (9.4-12.4); Monocytes # 2.7 K/mcL (0.0-1.3); Monocytes % 7.3 %; Nucleated Red Blood Cells 0.5 /100 WBC (0); Platelet Count 339 K/mcL (140-400); Red Cell Distribution Width 19.2 % (11.5-14.5); Segmented Neutrophils % 78.9 %
[2020-07-08 11:32] LABS: White Blood Count 36.8 K/mcL (4.3-11.1)
[2020-07-08 12:27] LABS: Platelet Estimate Normal (Normal)
[2020-07-08 12:28] LABS: Anisocytosis 1+ (Not Present)
[2020-07-08] MEDS ORDERED: *HR* FentaNYL (PF) 100 MCG/2 ML VIAL IVP ONE ×3 (12:46→15:04)
[2020-07-08] MEDS ORDERED: Isovue-370 500 ML BOTTLE IVP ONE (13:33)
[2020-07-08 16:24] LABS: Hematocrit 30.1 % (37.5-50.1)
[2020-07-08 16:25] LABS: Hemoglobin 9.7 g/dL (12.9-16.9)
[2020-07-08] MEDS ORDERED: Morphine Sulfate 2 MG/ML SYRINGE IVP PRN (16:32)
[2020-07-08] MEDS: MetroNIDAZOLE 500 MG/100 ML 500 MG/100 ML BAG IVPB SCH ×2 (16:38→23:17)
[2020-07-08] MEDS ORDERED: Morphine Sulfate 2 MG/ML SYRINGE IVP ONE (17:09)
[2020-07-08 18:30] LABS: Basophils # 0.2 K/mcL (0.0-0.2); Basophils % 0.6 %; Eosinophils # 0.1 K/mcL (0.0-0.6); Eosinophils % 0.5 %; Hematocrit 29.8 % (37.5-50.1); Hemoglobin 9.8 g/dL (12.9-16.9); Immature Granulocytes % 3.6 % (0-4); Lymphocytes # 2.2 K/mcL (0.6-4.6); Lymphocytes % 9.3 %; Mean Corpuscular HGB Conc 32.9 g/dL (31.6-35.5); Mean Corpuscular Hemoglobin 30.5 pg (28.0-33.3); Mean Platelet Volume 9.7 fL (9.4-12.4); Monocytes % 8.5 %; Neutrophils # 18.4 K/mcL (1.6-8.9); Nucleated Red Blood Cells 0.5 /100 WBC (0); Platelet Count 246 K/mcL (140-400); Red Blood Count 3.21 M/mcL (4.19-5.50); Segmented Neutrophils % 77.5 %; White Blood Count 23.8 K/mcL (4.3-11.1)
[2020-07-08 18:31] LABS: Mean Corpuscular Volume 92.8 fL (83.0-100.0)
[2020-07-08] MEDS: Ringers Solution, Lactated 1,000 ML IVC SCH (18:33)
[2020-07-08] MEDS: Pyridoxine (B-6) 50 MG TABLET PO SCH (18:33)
[2020-07-08] MEDS: Morphine Sulfate 2 MG/ML SYRINGE IVP PRN ×2 (18:53→20:55)
[2020-07-08] MEDS: *HR* HYDROmorphone (PF) 1 MG/ML SYRINGE IVP PRN (21:39)
[2020-07-08 23:03] LABS: Hematocrit 28.4 % (37.5-50.1); Hemoglobin 9.2 g/dL (12.9-16.9)
[2020-07-09] MEDS: Morphine Sulfate 2 MG/ML SYRINGE IVP PRN ×3 (00:27→05:32)
[2020-07-09] MEDS: *HR* HYDROmorphone (PF) 1 MG/ML SYRINGE IVP PRN ×4 (02:11→17:51)
[2020-07-09] MEDS: Ringers Solution, Lactated 1,000 ML IVC SCH ×3 (03:21→22:37)
[2020-07-09 03:31] LABS: Hematocrit 28.2 % (37.5-50.1); Mean Corpuscular HGB Conc 31.9 g/dL (31.6-35.5); Mean Corpuscular Hemoglobin 30.1 pg (28.0-33.3); Mean Corpuscular Volume 94.3 fL (83.0-100.0); Mean Platelet Volume 9.9 fL (9.4-12.4); Platelet Count 233 K/mcL (140-400); Red Blood Count 2.99 M/mcL (4.19-5.50); Red Cell Distribution Width 17.1 % (11.5-14.5); White Blood Count 22.6 K/mcL (4.3-11.1)
[2020-07-09 03:42] LABS: INR 1.4; Prothrombin Time 15.6 Seconds (9.4-12.1)
[2020-07-09 03:50] LABS: Calcium 8.7 mg/dL (8.6-10.3); Potassium 4.7 mEq/L (3.5-5.1)
[2020-07-09] MEDS: Vitamin E 200 UNIT (90MG) CAPSULE PO SCH (07:23)
[2020-07-09] MEDS: Famotidine 20 MG TABLET PO SCH (07:23)
[2020-07-09] MEDS ORDERED: 0.9 % Sodium Chloride 2,000 ML ONE (07:25)
[2020-07-09] MEDS ORDERED: Albumin 25% 25gram/100mL 25 GM/100 ML IV.SOLN IVPB PRN (07:26)
[2020-07-09] MEDS ORDERED: *HR* Heparin 10,000 UNIT/10 ML VIAL IV PRN (07:26)
[2020-07-09] MEDS ORDERED: 0.9 % Sodium Chloride 250 ML IVC PRN (07:26)
[2020-07-09] MEDS ORDERED: 0.9 % Sodium Chloride 1,000 ML PRIME SCH (07:30)
[2020-07-09] MEDS ORDERED: Vancomycin 500 MG in 0.9 % Sodium Chloride Mini Bag 100 ML IVPB ONE (12:00)
[2020-07-09] MEDS: MetroNIDAZOLE 500 MG/100 ML 500 MG/100 ML BAG IVPB SCH ×3 (12:20→23:38)
[2020-07-09] MEDS: Artificial Tears SOLN 15 ML BOTTLE BOTH EYES SCH ×4 (12:28→21:18)
[2020-07-09] MEDS ORDERED: Cefepime HCl 2,000 MG in Water for inj. (sterile) 20 ML IVP SCH (14:00)
[2020-07-09] MEDS: Pyridoxine (B-6) 50 MG TABLET PO SCH (16:25)
[2020-07-09] MEDS: Acetaminophen 650 MG RECTAL SUPP RC PRN (19:55)
[2020-07-09] MEDS: Norepinephrine 4 MG/254 ML IV.SOLN IVC SCH (20:16)
[2020-07-09] MEDS ORDERED: *HR* Metoprolol 5 MG/5 ML VIAL IVP PRN (20:33)
[2020-07-09] MEDS ORDERED: *HR* LORazepam 2 MG/ML VIAL IVP PRN (22:55)
[2020-07-10 03:41] LABS: Hematocrit 23.4 % (37.5-50.1); Mean Corpuscular HGB Conc 31.6 g/dL (31.6-35.5); Mean Corpuscular Hemoglobin 30.7 pg (28.0-33.3); Mean Corpuscular Volume 97.1 fL (83.0-100.0); Mean Platelet Volume 9.6 fL (9.4-12.4); Platelet Count 205 K/mcL (140-400); Red Blood Count 2.41 M/mcL (4.19-5.50); Red Cell Distribution Width 17.6 % (11.5-14.5); White Blood Count 14.5 K/mcL (4.3-11.1)
[2020-07-10 03:44] LABS: INR 1.4; Prothrombin Time 15.4 Seconds (9.4-12.1)
[2020-07-10 03:45] LABS: Hemoglobin 7.4 g/dL (12.9-16.9)
[2020-07-10 03:58] LABS: Calcium 8.2 mg/dL (8.6-10.3)
[2020-07-10] MEDS: Famotidine 20 MG TABLET PO SCH (08:55)
[2020-07-10] MEDS: Vitamin E 200 UNIT (90MG) CAPSULE PO SCH (08:55)
[2020-07-10] MEDS: MetroNIDAZOLE 500 MG/100 ML 500 MG/100 ML BAG IVPB SCH (08:56)
[2020-07-10] MEDS: Artificial Tears SOLN 15 ML BOTTLE BOTH EYES SCH ×4 (09:01→20:40)
[2020-07-10 09:49] LABS: Hematocrit 22.9 % (37.5-50.1); Hemoglobin 7.3 g/dL (12.9-16.9)
[2020-07-10 10:58] LABS: ABG Base Excess 3 mEq/L (-2 to 3); ABG HCO3 25 mEq/L (21-27); ABG Oxygen Saturation 97 % (95-98); ABG PCO2 30 mmHg (35-45); ABG PH 7.53 pH Units (7.32-7.45); ABG PO2 77 mmHg (85-104); ABG TCO2 26 mEq/L (20-26)
[2020-07-10] MEDS: Acetaminophen 650 MG RECTAL SUPP RC PRN (11:16)
[2020-07-10] MEDS: Norepinephrine 4 MG/254 ML IV.SOLN IVC SCH (11:28)
[2020-07-10] MEDS: Meropenem 500 MG in Water for inj. (sterile) 10 ML IVP SCH (15:50)
[2020-07-10 16:20] LABS: Alanine Aminotransferase 7 Units/L (7-52); Albumin 2.6 g/dL (3.5-5.7); Alkaline Phosphatase 80 Units/L (34-104); Amylase < 10 Units/L (29-103); Aspartate Amino Transferase 28 Units/L (13-39); Bilirubin,Direct 0.2 mg/dL (0.0-0.2); Bilirubin,Indirect 0.5 mg/dL (0.0-1.0); Bilirubin,Total 0.7 mg/dL (0.3-1.0); Globulin 2.7 g/dL (2.4-3.5); Lipase 6 Units/L (11-82); Total Protein 5.3 g/dL (6.4-8.9)
[2020-07-10] MEDS: Pyridoxine (B-6) 50 MG TABLET PO SCH (17:25)
[2020-07-10] MEDS ORDERED: Famotidine 20 MG/2 ML VIAL IVP SCH (18:30)
[2020-07-10] MEDS: Famotidine 20 MG/2 ML VIAL IVP SCH (19:11)
[2020-07-11] MEDS: Acetaminophen 650 MG RECTAL SUPP RC PRN (00:10)
[2020-07-11 04:27] LABS: Hemoglobin 6.6 g/dL (12.9-16.9); Mean Corpuscular HGB Conc 31.4 g/dL (31.6-35.5); Mean Corpuscular Hemoglobin 30.7 pg (28.0-33.3); Mean Corpuscular Volume 97.7 fL (83.0-100.0); Mean Platelet Volume 9.7 fL (9.4-12.4); Platelet Count 180 K/mcL (140-400); Red Blood Count 2.15 M/mcL (4.19-5.50); Red Cell Distribution Width 18.6 % (11.5-14.5); White Blood Count 19.7 K/mcL (4.3-11.1)
[2020-07-11 04:46] LABS: Calcium 8.4 mg/dL (8.6-10.3); Potassium 4.1 mEq/L (3.5-5.1)
[2020-07-11] MEDS ORDERED: 0.9 % Sodium Chloride 250 ML IVC SCH (05:30)
[2020-07-11] MEDS: Famotidine 20 MG/2 ML VIAL IVP SCH (07:12)
[2020-07-11] MEDS: Artificial Tears SOLN 15 ML BOTTLE BOTH EYES SCH ×4 (07:13→21:31)
[2020-07-11] MEDS ORDERED: 0.9 % Sodium Chloride 250 ML ONE ×2 (08:13→15:38)
[2020-07-11] MEDS ORDERED: 0.9 % Sodium Chloride 250 ML IVC PRN (08:19)
[2020-07-11] MEDS ORDERED: *HR* Heparin 10,000 UNIT/10 ML VIAL IV PRN ×2 (08:19)
[2020-07-11] MEDS: Norepinephrine 4 MG/254 ML IV.SOLN IVC SCH ×2 (10:28→16:28)
[2020-07-11] MEDS: Docusate Oral Soln 100 MG/10 ML UDC GTUBE SCH ×2 (11:16→21:31)
[2020-07-11] MEDS: *HR* Dextrose 50 % in Water (Vial) 50 ML VIAL IVP PRN (12:06)
[2020-07-11 12:08] LABS: Hematocrit 24.4 % (37.5-50.1); Hemoglobin 7.7 g/dL (12.9-16.9); Mean Corpuscular HGB Conc 31.6 g/dL (31.6-35.5); Mean Corpuscular Hemoglobin 30.6 pg (28.0-33.3); Mean Corpuscular Volume 96.8 fL (83.0-100.0); Mean Platelet Volume 9.6 fL (9.4-12.4); Platelet Count 165 K/mcL (140-400); Red Blood Count 2.52 M/mcL (4.19-5.50); Red Cell Distribution Width 18.9 % (11.5-14.5); White Blood Count 20.3 K/mcL (4.3-11.1)
[2020-07-11 15:06] LABS: Nucleated Red Blood Cells 0.8 /100 WBC (0)
[2020-07-11] MEDS ORDERED: Vancomycin 500 MG in 0.9 % Sodium Chloride Mini Bag 100 ML IVPB ONE (16:00)
[2020-07-11 16:04] LABS: Lymphocytes # 0.4 K/mcL (0.6-4.6); Monocytes # 0.4 K/mcL (0.0-1.3); Neutrophils # 18.5 K/mcL (1.6-8.9); Platelet Estimate Normal (Normal)
[2020-07-11] MEDS: Meropenem 500 MG in Water for inj. (sterile) 10 ML IVP SCH (17:08)
[2020-07-11 18:10] LABS: Hematocrit 29.8 % (37.5-50.1)
[2020-07-11 18:11] LABS: Hemoglobin 9.6 g/dL (12.9-16.9)
[2020-07-12] MEDS: *HR* Dextrose 50 % in Water (Vial) 50 ML VIAL IVP PRN ×2 (00:23→17:15)
[2020-07-12] MEDS: Acetaminophen 650 MG RECTAL SUPP RC PRN ×2 (01:05→11:47)
[2020-07-12 04:27] LABS: VBG Ionized Calcium 1.09 mmol/L (1.15-1.35)
[2020-07-12 04:30] LABS: Basophils # 0.1 K/mcL (0.0-0.2); Basophils % 0.5 %; Eosinophils # 0.3 K/mcL (0.0-0.6); Eosinophils % 1.7 %; Hematocrit 27.6 % (37.5-50.1); Hemoglobin 8.8 g/dL (12.9-16.9); Lymphocytes % 5.9 %; Mean Corpuscular HGB Conc 31.9 g/dL (31.6-35.5); Mean Corpuscular Hemoglobin 30.6 pg (28.0-33.3); Mean Corpuscular Volume 95.8 fL (83.0-100.0); Mean Platelet Volume 9.9 fL (9.4-12.4); Monocytes # 1.4 K/mcL (0.0-1.3); Monocytes % 7.8 %; Nucleated Red Blood Cells 0.9 /100 WBC (0); Platelet Count 127 K/mcL (140-400); Red Blood Count 2.88 M/mcL (4.19-5.50); Red Cell Distribution Width 19.6 % (11.5-14.5); Segmented Neutrophils % 80.1 %; White Blood Count 17.4 K/mcL (4.3-11.1)
[2020-07-12 04:45] LABS: Calcium 8.2 mg/dL (8.6-10.3); Magnesium 1.6 mg/dL (1.6-2.6); Phosphorous 1.2 mg/dL (2.7-4.5); Potassium 3.7 mEq/L (3.5-5.1)
[2020-07-12] MEDS: Docusate Oral Soln 100 MG/10 ML UDC GTUBE SCH ×2 (10:09→19:58)
[2020-07-12] MEDS: Famotidine 20 MG/2 ML VIAL IVP SCH (10:44)
[2020-07-12] MEDS: Artificial Tears SOLN 15 ML BOTTLE BOTH EYES SCH ×4 (10:55→22:24)
[2020-07-12] MEDS ORDERED: Calcium Gluconate 1gm/50mL 1 GM/50 ML BAG IVPB PRN (12:47)
[2020-07-12] MEDS ORDERED: Potassium Phosphate 44 MEQ in 0.9 % Sodium Chloride 250 ML IVPB PRN (13:42)
[2020-07-12] MEDS: Meropenem 500 MG in Water for inj. (sterile) 10 ML IVP SCH (15:24)
[2020-07-12] MEDS ORDERED: Scopolamine Patch 1.5 MG PATCH.TD72 TD SCH (19:45)
[2020-07-12] MEDS: *HR* FentaNYL PATCH 25 MCG PATCH TD SCH (19:59)
[2020-07-12] MEDS ORDERED: Haloperidol Lactate 5 MG/ML VIAL IVP PRN (21:00)
[2020-07-12 21:53] LABS: Basophils # 0.1 K/mcL (0.0-0.2); Basophils % 0.4 %; Eosinophils % 1.9 %; Hematocrit 28.5 % (37.5-50.1); Hemoglobin 9.2 g/dL (12.9-16.9); Immature Granulocytes % 1.9 % (0-4); Lymphocytes # 1.6 K/mcL (0.6-4.6); Lymphocytes % 5.7 %; Mean Corpuscular HGB Conc 32.3 g/dL (31.6-35.5); Mean Corpuscular Hemoglobin 30.7 pg (28.0-33.3); Mean Platelet Volume 10.1 fL (9.4-12.4); Monocytes # 1.7 K/mcL (0.0-1.3); Monocytes % 6.1 %; Nucleated Red Blood Cells 0.3 /100 WBC (0); Platelet Count 153 K/mcL (140-400); Red Cell Distribution Width 19.9 % (11.5-14.5); White Blood Count 28.6 K/mcL (4.3-11.1)
[2020-07-12 21:54] LABS: Eosinophils # 0.5 K/mcL (0.0-0.6)
[2020-07-12 22:02] LABS: Calcium 8.3 mg/dL (8.6-10.3); Potassium 4.2 mEq/L (3.5-5.1)
[2020-07-12] MEDS: *HR* HYDROmorphone (PF) 1 MG/ML SYRINGE IVP PRN (22:39)
[2020-07-12] MEDS ORDERED: *HR* HYDROmorphone (PF) 1 MG/ML SYRINGE IVP ONE (23:50)
[2020-07-13] MEDS: *HR* HYDROmorphone (PF) 1 MG/ML SYRINGE IVP PRN ×5 (01:16→21:28)
[2020-07-13] MEDS: Haloperidol Lactate 5 MG/ML VIAL IVP PRN ×3 (09:54→18:21)
[2020-07-13] MEDS: Artificial Tears SOLN 15 ML BOTTLE BOTH EYES SCH ×2 (18:22→20:54)
[2020-07-13] MEDS: Docusate Oral Soln 100 MG/10 ML UDC GTUBE SCH ×2 (18:23→20:55)
[2020-07-14] MEDS: Haloperidol Lactate 5 MG/ML VIAL IVP PRN ×4 (02:24→19:56)
[2020-07-14] MEDS: *HR* HYDROmorphone (PF) 1 MG/ML SYRINGE IVP PRN ×6 (02:25→22:05)
[2020-07-14] MEDS: Artificial Tears SOLN 15 ML BOTTLE BOTH EYES SCH ×4 (10:50→19:44)
[2020-07-14] MEDS: Docusate Oral Soln 100 MG/10 ML UDC GTUBE SCH ×2 (10:50→19:34)
[2020-07-14] MEDS: Atropine Sulfate 1% 40 DROP/2 ML BOTTLE SL PRN ×2 (15:36→20:00)
[2020-07-14] MEDS: Acetaminophen 650 MG RECTAL SUPP RC PRN (19:44)
[2020-07-15] MEDS: Atropine Sulfate 1% 40 DROP/2 ML BOTTLE SL PRN ×8 (00:25→23:37)
[2020-07-15] MEDS: *HR* HYDROmorphone (PF) 1 MG/ML SYRINGE IVP PRN ×6 (05:58→22:14)
[2020-07-15] MEDS: Docusate Oral Soln 100 MG/10 ML UDC GTUBE SCH ×2 (09:31→19:50)
[2020-07-15] MEDS: Haloperidol Lactate 5 MG/ML VIAL IVP PRN ×3 (09:43→16:17)
[2020-07-15] MEDS: Artificial Tears SOLN 15 ML BOTTLE BOTH EYES SCH ×4 (09:55→22:07)
[2020-07-15] MEDS: Acetaminophen 650 MG RECTAL SUPP RC PRN ×3 (10:18→22:48)
[2020-07-15] MEDS ORDERED: Scopolamine Patch 1.5 MG PATCH.TD72 TD STA (15:00)
[2020-07-15] MEDS ORDERED: *HR* FentaNYL PATCH 50 MCG PATCH TD SCH (18:15)
[2020-07-15] MEDS: *HR* FentaNYL PATCH 25 MCG PATCH TD SCH (19:25)
[2020-07-16] MEDS: Atropine Sulfate 1% 40 DROP/2 ML BOTTLE SL PRN ×6 (02:31→23:24)
[2020-07-16] MEDS: *HR* HYDROmorphone (PF) 1 MG/ML SYRINGE IVP PRN ×5 (02:35→23:24)
[2020-07-16] MEDS: Haloperidol Lactate 5 MG/ML VIAL IVP PRN ×3 (02:37→23:25)
[2020-07-16] MEDS: Docusate Oral Soln 100 MG/10 ML UDC GTUBE SCH ×2 (09:26→20:33)
[2020-07-16] MEDS: Artificial Tears SOLN 15 ML BOTTLE BOTH EYES SCH ×4 (10:23→23:13)
[2020-07-16 18:39] VITALS: BP 95/60
== END 2020-07-16 23:38 | disposition expired | DRG 871 ==
LOC: 3ANU 10:42 → EMEROOARM 10:42 → SUATTDRO 12:39 → 3ANU 13:36 → 2NNU 06-26 19:36 → SUATTDRO 06-27 16:35 → 2ANU 07-01 14:59 → ICNU 07-08 08:02 → 2ANU 07-12 21:09
PROVIDERS: ADMIT Internal Medicine; ATTEND Family Medicine
PROC: IRPERMA (2020-06-25 13:00)
PROC: IRDRAIN (2020-06-28 12:00)